=== PATIENT | male | born 1990 | race Caucasian/White ===

== ENCOUNTER 2025-06-06 12:16 | Emergency (ER) | payer SELFPAY ==
--- OUTSIDE RECORDS SUMMARY | 2025-06-06 12:18 | XMS_ITS | Clinical Summary ---
Author Organization [facility] Address [address] [place] [id number] Care Team Providers Care Planet[employer] Sky [employer] Technician Name Role Phone None, Provider MD Primary Care Provider Unavaila ble Allergies No known active allergies Medications No known medications Social History Tobacco Use Types Packs/Day Years Used Date Smoking Tobacco: Never Assessed Sex and Gender Information Value Date Recorded Sex Assigned at Not on file Legal Sex Male 8:08 PM CDT Gender Identity Not on file Sexual Orientation Not on file Last Filed Vital Signs Vital Sign Reading Time Taken Comments Blood Pressure 134/79 09/07/2024 5:19 AM TELEPHONE ORDER SUPERVISOR Pulse 84 09/07/2024 5:19 AM TELEPHONE ORDER SUPERVISOR Temperature 38.3 C (100.9 F) 09/07/2024 5:19 AM TELEPHONE ORDER SUPERVISOR Respiratory Rate 20 09/07/2024 5:19 AM TELEPHONE ORDER SUPERVISOR Oxygen Saturation 96% 09/07/2024 5:19 AM TELEPHONE ORDER SUPERVISOR Inhaled Oxygen Concentration - - Weight 106.6 kg (235 lb) 09/07/2024 5:19 AM TELEPHONE ORDER SUPERVISOR Height 185.4 cm (6' 1) 09/07/2024 5:19 AM TELEPHONE ORDER SUPERVISOR Body Mass Index 31 09/07/2024 5:19 AM TELEPHONE ORDER SUPERVISOR Plan of Treatment Health Maintenance Due Date Last Done Comments Annual Physical 1992 DTaP, Tdap and Td Vaccines (6 - Tdap) 2000 01/09/1995, 05/02/1993, 03/01/1990, Additional history exists Hepatitis C 2007 HPV Vaccines (1 - 3-dose SCDM series) 2016 COVID-19 Vaccine ( season) 2025 Hepatitis B Vaccines Completed 12/20/1999, 07/19/1999, 06/14/1999 Meningococcal B Vaccine Aged Out No l onger eligible based on patient's age to complete this topic Meningococcal Vaccine Aged Out No chanelle juana eligible based on patient's age to complete this topic Pneumococcal Vaccine: Pediatrics (0 to 5 Years) and At-Risk Patients (6 to 49 Years) Aged Out No longer eligible based on patient's age to complete this topic RSV Immunizations Under 20 Months Aged Out No longer eligible based on patient's age to complete this topic Insurance [employer] Care Teams Planetarium Sky Show Technician Relationship Specialty Start Date End Date None, Provider, MD PCP - General UNKNOWN PHYSICIAN SPECIALTY 09/07/24
[2025-06-06 12:28] VITALS: BP 137/90; PULSE 89; RESP 17; TEMP 36.8; O2SAT 100
--- NOTE | 2025-06-06 13:35 | ED_ITS ---
HPI - Wound/Laceration General Chief Complaint: Wound/Laceration Stated Complaint: cut finger with razor blade Time Seen by Provider: 06/06/25 13:27 Source: patient and RN notes reviewed Mode of arrival: ambulatory Limitations: no limitations History of Present Illness HPI narrative: This is a 34 year old right hand dominant male who presents for evaluation of left index finger laceration. 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 He reports finger still bleeding and deep. Unsure of last tetanus Onset (ago): minute(s) Related Data Home Medications ?Medication ?Instructions ?Recorded ?Confirmed ?Last Taken ?Type No Home Medications 06/06/25 06/06/25 U nknown History Allergies Allergy/AdvReac Type Severity Reaction Status Date / Time No Known Allergies Allergy Mild Verified 06/06/25 14:09 [facility] Past Medical History Medical History (Updated 06/06/25 @ 15:24 by Brittani Ponce MD) Patient denies medical problems Exam Const: General: no acute distress and alert Nutritional Appearance: well nourished Orientation/consciousness: patient oriented x3 HENMT: Head: normal to inspection Resp: Effort & Inspection: normal respiratory effort Skin: Wounds: wounds noted (left index linear laceration radial side of finger 4 cm) Neuro: General: patient oriented x3, moves all extremities and CN's II-XI intact bilaterally Extrem: Other: index finger laceration Psych: Mental Status: mental status grossly normal Affect: normal affect Attitude: cooperative Course Vital Signs Vital signs: Vital Signs Temperature 98.2 F 06/06/25 12:28 Pulse Rate 89 06/06/25 12:28 Respiratory Rate 17 06/06/25 12:28 Blood Pressure 137/90 06/06/25 12:28 Pulse Oximetry 100 06/06/25 12:28 Temperature 98.2 F 06/06/25 12:28 Pulse Rate 68 06/06/25 15:33 Respiratory Rate 16 06/06/25 15:33 Blood Pressure 135/88 06/06/25 15:33 Pulse Oximetry 99 06/06/25 15:33 Procedures Laceration Laceration 1: Date: 06/06/25 Time: 15:21 Site: hand Side (If applicable): right Size (cm): 4 Description: linear and clean Depth: simple, single layer Local Anesthetic: lidocaine 2% Amount of anesthesia used (mL): 3 Pre-repair: wound explored and irrigated ====== Skin Level ====== Skin layer closed with: prolene Size (cm): 4-0 Number of sutures: 5 Technique: simple, interrupted ====== Subcutaneous Layer ====== ====== Muscle Layer ====== ====== Tendon Layer ====== Discharge Plan Discharge Clinical Impression: Laceration of index finger Qualifiers: Encounter type: initial encounter Damage to nail status: without damage Laterality: left Patient Disposition: Home Condition: Stable Instructions: Care For Your Stitches (ED), Laceration (ED) Additional Instructions: Today you were evaluated for a finger laceration. I placed 5 stitches. Clean with soap and water daily. Keep clean and dry otherwise. Watch for signs of infection. Your stitches will need to be removed in 10 days. Patient Language: Bulgarian Prescriptions: No Action No Home Medications Follow-up/Referrals: Jaspreet,Nima Reed MD [Non-Staff]
[2025-06-06] MEDS: TETANUS,DIPHTHERIA,AC PERTUSSIS ADULT (0.5 ML) BOOSTRIX IM (13:51)
[2025-06-06 15:33] VITALS: BP 135/88; PULSE 68; RESP 16; O2SAT 99
== END 2025-06-06 15:40 | disposition home or self-care (01) ==
PROVIDERS: Emergency Provider General Practice
DX: S61.211A Laceration without foreign body of left index finger without damage to nail, initial encounter (principal); W26.8XXA Contact with other sharp object(s), not elsewhere classified, initial encounter; Z23 Encounter for immunization
CPT/HCPCS: 12002; 90471; 90715; 99282